=== PATIENT | male | born 1990 | race African-American/Black ===

== ENCOUNTER 2020-04-12 01:44 | Emergency (ER) | payer OTHER ==
[2020-04-12] MEDS ORDERED: diphenhydrAMINE 25 MG CAP ONE (02:25)
== END 2020-04-12 02:31 ==
LOC: ERS 01:44 → EEVIPCON 01:44 → ERS 02:31
DX: T78.1XXA Other adverse food reactions, not elsewhere classified, initial encounter (principal); J45.909 Unspecified asthma, uncomplicated; F41.9 Anxiety disorder, unspecified
CPT/HCPCS: 99283; Q0163